=== PATIENT | female | born 1955 | race African-American/Black ===

== ENCOUNTER 2025-02-25 07:27 | Inpatient (IN) | payer OTHER, MEDICAID ==
[~2025-02-25] VITALS: Ht 167.6 cm; Wt 84.3 kg
[2025-02-25] VITALS (9 sets, daily range): BP systolic 121–164; BP diastolic 70–80; PULSE 61–78; RESP 13–24; TEMP 97.7–98.1; O2SAT 97–100
[~2025-02-25 07:27] MED LIST: CYAN50TA2 PO; MULT-691 PO; PANT40T PO
[2025-02-25] MEDS: fentaNYL CITRATE 100 MCG/2 ML VL IV ONE (07:45)
--- NOTE | 2025-02-25 07:45 | ED.PDOC ---
HPI (NEURO) HPI Comments 69 year old female presents to the ED with a chief complaint of headache onset 5 days. Patient states she has been experiencing headache for the past 5 days, was seen at [facility], had a CT head, CT abdomen and were both negative. Patient states pain has not improved, she has also experienced nausea/vomiting, blurred vision. She would get mild headaches once every few months, first headache this severe. PCP has told patient headaches might be stressed induced. PMHx [place], CAD, HTN, HLD. Denies chest pain, shortness of breath, diarrhea, fever, chills, dysuria, hematemesis. No other symptoms or modifying factors present at this time. Time Seen by MD: 07:35 Primary Care Provider: TRISTON Reviewed Notes: Medications, Allergies Information Source: Patient Mode of Arrival: Wheelchair Severity: Moderate Headache Severity: Moderate Timing: Days Duration: Since onset Prehospital treatment: None Headache Quality: Throbbing, Sharp Headache Location: Generalized Onset: At rest Circumstances: Recent stress Symptoms: Change of vision Before: Normal History of: [place], Hypertension Modifying factors: Nothing Associated Signs and Symptoms: Headache, Nausea, Vomiting, Blurred Vision Past Medical History PAST MEDICAL HISTORY: CAD, High Lipids, HTN, [place] 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 History Family History Family History: No family hx of Cancer Social History Smoker: Non-Smoker Alcohol: Denies ETOH Use Drugs: Denies Drug Use Lives In: Home Constitutional: denies: chills, diaphoresis, fatigue, fever, malaise, sweats, weakness, others EENTM: reports: blurred vision; denies: double vision, ear bleeding, ear discharge, ear drainage, ear pain, ear ringing, eye pain, eye redness, hearing loss, mouth pain, mouth swelling, nasal discharge, nose bleeding, nose congestion, nose pain, photophobia, tearing, throat pain, throat swelling, voice changes, others Respiratory: denies: cough, hemoptysis, orthopnea, SOB at rest, shortness of breath, SOB with excertion, stridor, wheezing, others Cardiovascular: denies: chest pain, dizzy spells, diaphoresis, Dyspnea on exertion, edema, irregular heart beat, left arm pain, lightheadedness, palpitations, PND, syncope, others Gastrointestinal: reports: nausea, vomiting; denies: abdomen distended, abdominal pain, blood streaked bowels, constipated, diarrhea, dysphagia, difficulty swallowing, hematemesis, melena, poor appetite, poor fluid intake, rectal bleeding, rectal pain, others Genitourinary: denies: abnormal vagina bleeding, burning, dyspareunia, dysuria, flank pain, frequency, hematuria, incontinence, pain, , vagina discharge, urgency, others Neurological: reports: headache; denies: dizziness, fainting, left sided numbness, left sided weakness, numbness, paresthesia, pre-existing deficit, right sided numbness, right sided weakness, seizure, speech problems, tingling, tremors, weakness, others Musculoskeletal: denies: back pain, gout, joint pain, joint swelling, muscle pain, muscle stiffness, neck pain, others Integumetry: denies: bruises, change in color, change in hair/nails, dryness, laceration, lesions, lumps, rash, wounds, others Allergic/Immunocompromised: denies: Difficulty Healing, Frequent Infections, Hives, Itching, others Hematologic/Lymphatic: denies: anemia, blood clots, easy bleeding, easy bruising, swollen glands, others Endocrine: denies: excessive hunger, excessive sweating, excessive thirst, excessive urination, flushing, intolerance to cold, intolerance to heat, unexplained weight gain, unexplained weight loss, others Psychiatric: denies: anxiety, bipolar disorder, depression, hopeless, panic disorder, schizophrenia, sleepless, suicidal, others All Other Systems: Reviewed and Negative Physical Exam General Appearance: No Apparent Distress, Normal HEENT: Normal ENT Inspection, Pharynx Normal, TMs Normal Neck: Full Range of Motion, Non-Tender, Normal, Normal Inspection Respiratory: Chest Non-Tender, Lungs Clear, No Accessory Muscle Use, No Respiratory Distress, Normal Breath Sounds Cardiovascular: No Edema, No JVD, No Murmur, No Gallop, Normal Peripheral Pulses, Regular Rate/Rhythm Breast Exam: Deferred Gastrointestinal: No Organomegaly, Non Tender, No Pulsatile Mass, Normal Bowel Sounds, Soft Genitalia: Deferred Pelvic: Deferred Rectal: Deferred Extremities: No calf tenderness, Normal capillary refill, Normal inspection, Normal range of motion, Non-tender, No pedal edema Musculoskeletal : Apperance: Normal Neurologic: Alert, insurance claim approver II-XII nml as Tested, No Motor Deficits, No Sensory Deficits, Other (No palpable cords) Cerebellar Function: Normal Reflexes: Normal Skin: Dry, Normal Color, Warm Lymphatic: No Adenopathy EKG EKG : Pulse Rate (adult): 69 Cardiac Rhythm: NSR, PVC's (occacional) Was a procedure done? Was a procedure done?: No Differential Diagnosis (SZ) Seizure: N/A General Weakness: N/A Headache: Cluster, Migraine, Carbon Monoxide Toxicity, CVA, Epidural Hemorrhage, Intracerebral Hemorrhage, Subarachnoid Hemorrhage, Subdural Hemorrhage, Mass Lesion, Meningitis, Sinusitis, Trigeminal Neuralgia, Other (temporal arteritis) X-Ray, Labs, Meds, VS Vital Signs Date Time Temp Pulse Resp B/P (MAP) Pulse Ox O2 Delivery O2 Flow Rate FiO2 02/25/25 09:53 97.9 60 16 153/87 (109) 97 97.9 02/25/25 07:49 69 02/25/25 07:44 97.8 69 20 157/90 (112) 98 97.8 02/25/25 07:44 69 Lab Test 02/25/25 09:18 02/25/25 08:00 Range/Units Urine Color Light-yellow Yellow Urine Clarity Clear Clear Urine pH 5.5 5.0-9.0 Urine Specific [place] 1.013 1.001-1.035 Urine Protein Negative Negative Urine Ketones Negative Negative Urine Blood 1+ H Negative /uL Urine Nitrite Negative Negative Urine Bilirubin Negative Negative Urine Urobilinogen Normal Negative mg/dL Urine Leukocyte Esterase Negative Negative /uL Urine RBC 2 0 - 4 /hpf Urine Microscopic WBC 1 0-5 /HPF Urine Squamous Epithelial Cells Few <5 /hpf Urine Bacteria Few H None Seen /hpf Urine Glucose Normal Normal mg/dL White Blood Count 6.8 4.4-10.8 10^3/uL Red Blood Count 4.35 4.0-5.20 10^6/uL Hemoglobin 12.3 12.2-16.2 g/dL Hematocrit 36.5 36.0-46.0 % Mean Corpuscular Volume 84.0 80.0-100.0 fL Mean Corpuscular Hemoglobin 28.4 28.0-32.0 pg Mean Corpuscular Hemoglobin Concent 33.8 32.0-36.0 g/dL Red Cell Distribution Width 13.7 11.8-14.3 % Platelet Count 301 140-450 10^3/uL Mean Platelet Volume 8.0 6.9-10.8 fL Neutrophils (%) (Auto) 61.3 37.0-80.0 % Lymphocytes (%) (Auto) 23.5 10.0-50.0 % Monocytes (%) (Auto) 6.9 0.0-12.0 % Eosinophils (%) (Auto) 8.0 H 0.0-7.0 % Basophils (%) (Auto) 0.3 0.0-2.0 % Neutrophils # (Auto) 4.1 1.6-8.6 10 ^3/uL Lymphocytes # (Auto) 1.6 0.4-5.4 10 ^3/uL Monocytes # (Auto) 0.5 0-1.3 10 ^3/uL Eosinophils # (Auto) 0.5 0-0.8 10 ^3/uL Basophils # (Auto) 0 0-0.2 10 ^3/uL Nucleated Red Blood Cells 0.2 % Erythrocyte Sedimentation Rate 72 H 0-20 mm/hr Sodium Level 142 136-145 mmol/L Potassium Level 3.8 3.5-5.1 mmol/L Chloride Level 109 H 98-107 mmol/L Carbon Dioxide Level 24 20-31 mmol/L Anion Gap 9 5-15 Blood Urea Nitrogen 10 9-23 mg/dL Creatinine 0.98 0.550-1.02 mg/dL Glomerular Filtration Rate Calc 63 >90 mL/min BUN/Creatinine Ratio 10.2 10.0-20.0 Serum Glucose 101 74-106 mg/dL Calcium Level 9.3 8.7-10.4 mg/dL Total Bilirubin 0.4 0.2-1.0 mg/dL Aspartate Amino Transferase (AST) 12 L 13-40 U/L Alanine Aminotransferase (ALT) 24 7-40 U/L Alkaline Phosphatase 98 46-116 U/L Total Protein 7.5 5.7-8.2 g/dL Albumin 4.2 3.2-4.8 g/dL Lipase 38 12-53 U/L [address] [address] Ph: [phone] DIAGNOSTIC IMAGING Diagnostic Imaging Report : [id number] Signed PATIENT: JONAS ROGEL ACCT: [id number] UNIT: [id number] : 1955 LOC: ER ROOM / BED: / AGE / SEX: 69 / F ADM STATUS: REG ER SERVICE [id number] ORDERING PHYSICIAN: JUDY MCGILL MD PROCEDURE(s): HWOCT - HEAD WITHOUT CONTRAST REASON: headache ORDER NUMBER(s): [id number], ACCESSION NUMBER(s): [id number] EXAM: CT HEAD WITHOUT CONTRAST HISTORY: headache COMPARISON: None TECHNIQUE: Axial images of the head were obtained and reformatted in coronal and sagittal planes. All CT scans at this medical facility are performed using dose modulation te chniques as appropriate to a performed exam including the following: Automated exposure control was utilized; adjustment of the MA and/or KV according to patient size; and use of iterative reconstruction technique. CT Dose: CTDI volume is 49 mGy. Dose-length product is 796 mGy*cm FINDINGS: There is no evidence of acute intracranial hemorrhage, mass, mass effect midline shift. There is no hydrocephalus or extra-axial fluid collection. There is a chronic lacunar infarct in the right caudate head region. Powers-white matter differentiation is otherwise maintained. The visualized paranasal sinuses and mastoid air cells are clear. The calvarium is intact. IMPRESSION: 1. No acute intracranial process. HS:Y ATED BY: JAYLEN HINES MD DICTATED DATE/TIME: 02/25/25809 SIGNED BY: JAYLEN HINES MD SIGNED DATE/TIME: 02/25/25809 CC: Time of 1ST Reevaluation: 08:05 Reevaluation 1ST: Unchanged Time of 2ND Reevaluation: 10:24 Reevaluation 2ND: Unchanged Patient Education/Counseling: Diagnosis, Treatment, Prognosis, Need For Follow Up Family Education/Counseling: Diagnosis, Treatment, Prognosis, Need For Follow Up, No Family Present Additional Information Previous visits reviewed: 05/18/2019, 12/16/2013 due to CP was diagosed with GERD and atypical chest pain The following tests were ordered, and results were reviewed by me: ESR, CT HEAD WO CONTRAST, CBC, CMP, LIPASE I reviewed and agreed with the following test results read by other providers: CT HEAD WO CONTRAST I discussed treatment and results with medical personnel and: patient Comprehensive systems review obtained and negative except for what is stated in the HPI. pt has a headache on the left evangelical. although she has had headaches, before, they were different. she recently had a workup, including ct of head and abdomen and pelvis at [facility], which were negative. repeat head ct is again negative. i do not palpate a temporal cord, but her ESR is >50 with reports of intermittent visual changes. i have suspicion for temporal arteritis and will start her on high dose prednisone. she will be admitted for intractable headache and rule our temporal arteritis Departure 1 Departure Time of Disposition: 10:26 Impression: Primary Impression: Intractable headache Qualified Codes: R51.9 - Headache, unspecified Additional Impression: Temporal arteritis syndrome Disposition: ADMITTED INPATIENT Admit to: Med Surg Condition: Serious Discharged With: Self, Relative Critical Care Note Critical Care Time?: Yes (55 min-critical care time only) Critical care comment: Due to concerns for patients condition deteriorating, the care required my highest level of attention and readiness to intervene. I assessed the patient, reviewed the medical records, ordered the appropriate tests and treatments, then reassessed for results and responsiveness. I communicated with medical personnel and consultants and formulated a plan of care. Total critical care time excludes any procedures Stability Stability form required: No I personally scribed for JUDY MCGILL MD ([email or web address]) on 02/25/25 at 07:45. Electronically submitted by Cristiane Diaz ([email or web address]). I personally scribed for JUDY MCGILL MD ([email or web address]) on 02/25/25 at 07:46. Electronically submitted by Cristiane Diaz ([email or web address]). I personally scribed for JUDY MCGILL MD ([email or web address]) on 02/25/25 at 07:49. Electronically submitted by Cristiane Diaz ([email or web address]). I personally scribed for JUDY MCGILL MD ([email or web address]) on 02/25/25 at 08:37. Electronically submitted by Cristiane Diaz ([email or web address]). JUDY MCGILL MD February 25, 2025 07:45
--- NOTE | 2025-02-25 08:13 | DVH ---
EXAM: CT HEAD WITHOUT CONTRAST HISTORY: headache COMPARISON: None TECHNIQUE: Axial images of the head were obtained and reformatted in coronal and sagittal planes. All CT scans at this medical facility are performed using dose modulation techniques as appropriate t o a performed exam including the following: Automated exposure control was utilized; adjustment of th e MA and/or KV according to patient size; and use of iterative reconstruction technique. CT Dose: CTDI volume is 49 mGy. Dose-length product is 796 mGy*cm FINDINGS: There is no evidence of acute intracranial hemorrhage, mass, mass effect midline shift. There is no h ydrocephalus or extra-axial fluid collection. There is a chronic lacunar infarct in the right caudat e head region. Powers-white matter differentiation is otherwise maintained. The visualized paranasal sinuses and mastoid air cells are clear. The calvarium is intact. IMPRESSION: 1. No acute intracranial process. HS:Y
[2025-02-25 08:21] LABS: Basophils # (auto) 0 10 ^3/uL (0-0.2); Basophils % (auto) 0.3 % (0.0-2.0); Eosinophils # (auto) 0.5 10 ^3/uL (0-0.8); Hematocrit 36.5 % (36.0-46.0); Hemoglobin 12.3 g/dL (12.2-16.2); Lymphocytes # (auto) 1.6 10 ^3/uL (0.4-5.4); Lymphocytes % (auto) 23.5 % (10.0-50.0); Mean Corpuscular Hemoglobin 28.4 pg (28.0-32.0); Mean Corpuscular Hgb Conc. 33.8 g/dL (32.0-36.0); Monocytes # (auto) 0.5 10 ^3/uL (0-1.3); Monocytes % (auto) 6.9 % (0.0-12.0); Neutrophils # (auto) 4.1 10 ^3/uL (1.6-8.6); Neutrophils % (auto) 61.3 % (37.0-80.0); Nucleated Red Blood Cells % 0.2 %; Platelet Count (auto) 301 10^3/uL (140-450); Red Blood Cells 4.35 10^6/uL (4.0-5.20); Red Cell Distribution Width 13.7 % (11.8-14.3); White Blood Cell 6.8 10^3/uL (4.4-10.8)
[2025-02-25 08:37] LABS: Alanine Aminotransferase 24 U/L (7-40); Albumin 4.2 g/dL (3.2-4.8); Alkaline Phosphatase 98 U/L (46-116); Anion Gap 9 (5-15); BUN/Creatinine Ratio 10.2 (10.0-20.0); Blood Urea Nitrogen 10 mg/dL (9-23); Calcium 9.3 mg/dL (8.7-10.4); Carbon Dioxide 24 mmol/L (20-31); Glucose 101 mg/dL (74-106); Lipase 38 U/L (12-53); Potassium 3.8 mmol/L (3.5-5.1); Sodium 142 mmol/L (136-145); Total Protein 7.5 g/dL (5.7-8.2)
[2025-02-25 08:38] LABS: Bilirubin, Total 0.4 mg/dL (0.2-1.0)
[2025-02-25 08:43] LABS: Aspartate Aminotransferase 12 U/L (13-40); Chloride 109 mmol/L (98-107)
[2025-02-25 08:55] LABS: Erythrocyte Sedimentation Rate 72 mm/hr (0-20)
[2025-02-25 09:57] LABS: Urine Bacteria FEW /hpf (None Seen); Urine Blood 1+ /uL (Negative); Urine Clarity Clear (Clear); Urine Color Light-Yellow (Yellow); Urine Protein, UAD Negative (Negative); Urine Specific Gravity 1.013 (1.001-1.035); Urine Squamous Epithelial Cell FEW /hpf (<5); Urine Urobilinogen Normal (Negative); Urine WBC 1 /HPF (0-5); Urine pH 5.5 (5.0-9.0)
[2025-02-25] MEDS: KETOROLAC TROMETH 30 MG/ML 1ML VIAL IV ONE (12:21)
[2025-02-25] MEDS: predniSONE 20 MG TAB PO ONE (12:21)
[2025-02-25] MEDS ORDERED: NITROGLYCERIN 0.4 MG SL TAB SL PRN (13:15)
[2025-02-25] MEDS ORDERED: MORPHINE SULFATE 4 MG/ML SYR/VIAL IV PRN ×2 (13:15)
[2025-02-25] MEDS ORDERED: ACETAMINOPHEN 325 MG TAB PO PRN (13:15)
--- NOTE | 2025-02-25 13:52 | DVH ---
EXAM: CT CT AB PEL WO CON-NO ORAL OR IV HISTORY: abd pain COMPARISON: None TECHNIQUE: Helical CT images of the abdomen and pelvis were performed without IV contrast. Sagittal a nd coronal reformatted images were obtained. This CT exam was performed using one or more of the foll owing dose reduction techniques: Automated exposure control, adjustment of the mA and/or kv according to patient size, or the use of iterative reconstruction techniques. Radiation Dose: Abdomen/Pelvis: CTDIvol 13.03 mGy, DLP 715.11 mGy*cm. FINDINGS: CT abdomen: There are interstitial infiltrates in the lung bases. The heart is enlarged. The stomach is distended with food. There are bilateral renal parapelvic cysts. The noncontrast liver, spleen, g allbladder, pancreas, and adrenal glands are unremarkable. No abdominal aortic aneurysm. CT pelvis: No abnormal bowel dilatation or free air. There is trace free fluid in the pelvis. There i s fecal retention in the colon. There are descending and sigmoid colon diverticula without evidence o f acute diverticulitis. The appendix and urinary bladder are unremarkable. There is [id number] right and mild left hip osteoarthritis. There is advanced degenerative disc disease and facet arthrop athy L5-S1, less severe degenerative changes at the more cephalad levels. IMPRESSION: 1. Cardiomegaly and interstitial infiltrates in the lung bases which may be due to CHF, interstitial pneumonia, or other interstitial lung disease. 2. Fecal retention in the colon suggestive of constipation. 3. Distal colonic diverticulosis without evidence of acute diverticulitis. 4. Trace free fluid in the pelvis, possibly physiologic. 5. Advanced lower lumbar degenerative disc disease and facet arthropathy. This would be better joi cterized with noncontrast MRI of the lumbar spine on a nonemergent basis, especially if the patient c omplains of lower extremity radicular symptoms. 6. No evidence of bowel obstruction, acute appendicitis, or other acute process in the abdomen or pel vis.
[2025-02-25] MEDS ORDERED: PIPERACILLIN-TAZOB 3.375GM 100 ML IV SCH (14:00)
[2025-02-25] MEDS: cefTRIAXone 1GM/50ML D5W 50 ML IV SCH (14:00)
--- NOTE | 2025-02-25 14:13 | DVHHP2 ---
History of Present Illness Reason for Visit: Headache History of Present Illness Paulette Simms is a 69-year-old female with past medical history of CAD, SD, status post PTCA x2 within the last 10 years, hypertension, hyperlipidemia, tubal ligation, and right shoulder surgery who presents to the ED with headache and change in vision which she states is fuzzy. However when patient puts on her eyeglasses she states that the vision is clear. Patient also states that she has been having diarrhea for the last 2 weeks dark brown and greenish output. Patient states that the last time she had a formed stool was over 2 weeks ago. She states that the pain in her abdomen is 7/10 stabbing pressure- like and constant. Patient also states that she was at [facility] recently complaining of a headache and they told her that she had TIA was not given any anticoagulants. She also states that her CT head and CT abdomen and pelvis that she did there was negative. She also endorses that they gave her cephalexin for a UTI and has not finished the course it. She also states that they gave her alendronate for her blood pressure and not for osteoporosis. Patient denies any chest pain, shortness of breath, recent trauma or injury, recent sick contacts, recent ingestion of spoiled food, lightheadedness, weakness, dizziness, hematemesis, melena, or hematochezia. Cardiovascular: CAD, HTN, SD, hyperipidemia Past Surgical History: Other (Right shoulder surgery and PTCA x2 within the last 10 years), Tubal Ligation Family History: Arthritis, Cancer, Hypertension, Other (Mom with arthritis, breast cancer, SD, and hypertension. Brother with arthritis, asthma, SD, and hy pertension. Sister with arthritis, asthma, breast cancer, stomach cancer, and hypertension. Dad with colon cancer.) Smoke: No ALCOHOL: none Drugs: None Lives: with Family Domestic Violence: Neg Review of Systems Constitutional: Yes: Other (MCCARTHY) Eyes: Vision change Gastrointestinal: Abdominal Pain, Diarrhea Allergies: Coded Allergies: Sulfa Drugs (Verified Allergy, Mild, ITCH, 02/17/13) Codeine (Verified Adverse Reaction, Mild, NAUSEA, 02/17/13) Exam Vital Signs Vital Signs Date Time Temp Pulse Resp B/P (MAP) Pulse Ox O2 Delivery O2 Flow Rate FiO2 02/25/25 12:15 61 13 99 Room Air* 0 21 02/25/25 12:15 98.4 158/73 (101) 98.4 General Appearance: Alert, Oriented X3, Cooperative, No acute distress HEENT: Atraumatic, PERRLA, EOMI, Mucous membr. moist/pink Respiratory: Clear to auscultation, Normal air movement Cardiovascular: Regular rate, Normal S1, Normal S2 Abdominal: Soft Extremities: Normal pulses Neuro: Normal speech, Strength at 5/5 X4 ext, Normal tone, Sensation intact Psych/Mental Status: Mental status NL, Mood NL Labs/Xrays Labs Test 02/25/25 09:18 02/25/25 08:00 Range/Units Urine Color Light-yellow Yellow Urine Clarity Clear Clear Urine pH 5.5 5.0-9.0 Urine Specific [place] 1.013 1.001-1.035 Urine Protein Negative Negative Urine Ketones Negative Negative Urine Blood 1+ H Negative /uL Urine Nitrite Negative Negative Urine Bilirubin Negative Negative Urine Urobilinogen Normal Negative mg/dL Urine Leukocyte Esterase Negative Negative /uL Urine RBC 2 0 - 4 /hpf Urine Microscopic WBC 1 0-5 /HPF Urine Squamous Epithelial Cells Few <5 /hpf Urine Bacteria Few H None Seen /hpf Urine Glucose Normal Normal mg/dL White Blood Count 6.8 4.4-10.8 10^3/uL Red Blood Count 4.35 4.0-5.20 10^6/uL Hemoglobin 12.3 12.2-16.2 g/dL Hematocrit 36.5 36.0-46.0 % Mean Corpuscular Volume 84.0 80.0-100.0 fL Mean Corpuscular Hemoglobin 28.4 28.0-32.0 pg Mean Corpuscular Hemoglobin Concent 33.8 32.0-36.0 g/dL Red Cell Distribution Width 13.7 11.8-14.3 % Platelet Count 301 140-450 10^3/uL Mean Platelet Volume 8.0 6.9-10.8 fL Neutrophils (%) (Auto) 61.3 37.0-80.0 % Lymphocytes (%) (Auto) 23.5 10.0-50.0 % Monocytes (%) (Auto) 6.9 0.0-12.0 % Eosinophils (%) (Auto) 8.0 H 0.0-7.0 % Basophils (%) (Auto) 0.3 0.0-2.0 % Neutrophils # (Auto) 4.1 1.6-8.6 10 ^3/uL Lymphocytes # (Auto) 1.6 0.4-5.4 10 ^3/uL Monocytes # (Auto) 0.5 0-1.3 10 ^3/uL Eosinophils # (Auto) 0.5 0-0.8 10 ^3/uL Basophils # (Auto) 0 0-0.2 10 ^3/uL Nucleated Red Blood Cells 0.2 % Erythrocyte Sedimentation Rate 72 H 0-20 mm/hr Sodium Level 142 136-145 mmol/L Potassium Level 3.8 3.5-5.1 mmol/L Chloride Level 109 H 98-107 mmol/L Carbon Dioxide Level 24 20-31 mmol/L Anion Gap 9 5-15 Blood Urea Nitrogen 10 9-23 mg/dL Creatinine 0.98 0.550-1.02 mg/dL Glomerular Filtration Rate Calc 63 >90 mL/min BUN/Creatinine Ratio 10.2 10.0-20.0 Serum Glucose 101 74-106 mg/dL Calcium Level 9.3 8.7-10.4 mg/dL Total Bilirubin 0.4 0.2-1.0 mg/dL Aspartate Amino Transferase (AST) 12 L 13-40 U/L Alanine Aminotransferase (ALT) 24 7-40 U/L Alkaline Phosphatase 98 46-116 U/L Total Protein 7.5 5.7-8.2 g/dL Albumin 4.2 3.2-4.8 g/dL Lipase 38 12-53 U/L EXAM: CT CT AB PEL WO CON-NO ORAL OR IV HISTORY: abd pain COMPARISON: None TECHNIQUE: Helical CT images of the abdomen and pelvis were performed without IV contrast. Sagittal and coronal reformatted images were obtained. This CT exam was performed using one or more of the following dose reduction techniques: Automated exposure control, adjustment of the mA and/or kv according to patient size, or the use of iterative reconstruction techniques. Radiation Dose: Abdomen/Pelvis: CTDIvol 13.03 mGy, DLP 715.11 mGy*cm. FINDINGS: CT abdomen: There are interstitial infiltrates in the lung bases. The heart is enlarged. The stomach is distended with food. There are bilateral renal parapelvic cysts. The noncontrast liver, spleen, gallbladder, pancreas, and adrenal glands are unremarkable. No abdominal aortic aneurysm. CT pelvis: No abnormal bowel dilatation or free air. There is trace free fluid in the pelvis. There is fecal retention in the colon. There are descending and sigmoid colon diverticula without evidence of acute diverticulitis. The appendix and urinary bladder are unremarkable. There is [id number] right and mild left hip osteoarthritis. There is advanced degenerative disc disease and facet arthropathy L5-S1, less severe degenerative changes at the more cephalad levels. IMPRESSION: 1. Cardiomegaly and interstitial infiltrates in the lung bases which may be due to CHF, interstitial pneumonia, or other interstitial lung disease. 2. Fecal retention in the colon suggestive of constipation. 3. Distal colonic diverticulosis without evidence of acute diverticulitis. 4. Trace free fluid in the pelvis, possibly physiologic. 5. Advanced lower lumbar degenerative disc disease and facet arthropathy. This would be better characterized with noncontrast MRI of the lumbar spine on a nonemergent basis, especially if the patient complains of lower extremity radicular symptoms. 6. No evidence of bowel obstruction, acute appendicitis, or other acute process in the abdomen or pelvis. EXAM: CT HEAD WITHOUT CONTRAST HISTORY: headache COMPARISON: None TECHNIQUE: Axial images of the head were obtained and reformatted in coronal and sagittal planes. All CT scans at this medical facility are performed using dose modulation techniques as appropriate to a performed exam including the following: Automated exposure control was utilized; adjustment of the MA and/or KV according to patient size; and use of iterative reconstruction technique. CT Dose: CTDI volume is 49 mGy. Dose-length product is 796 mGy*cm FINDINGS: There is no evidence of acute intracranial hemorrhage, mass, mass effect midline shift. There is no hydrocephalus or extra-axial fluid collection. There is a chronic lacunar infarct in the right caudate head region. Powers-white matter di fferentiation is otherwise maintained. The visualized paranasal sinuses and mastoid air cells are clear. The calvarium is intact. IMPRESSION: 1. No acute intracranial process. Assessment/Plan Assessment/Plan Assessment Intractable headache with vision change Hypertension History of UTI Obesity Cardiomegaly Possible pneumonia noted on imaging Constipation Diverticulosis without diverticulitis Events lower lumbar degenerative disc disease and facet arthropathy History of CAD History of SD status post PTCA x2 within the last 10 years History of tubal ligation History of right shoulder surgery History of hyperlipidemia ? History of TIA not on anti coags Plan Admit to [facility] noted Prednisone given in ED Fentanyl given in ED Lipase CT head noted ESR elevated IV antibiotics-ceftriaxone Last echo on 05/22/[address] 55% CT abdomen and pelvis Lactic C diff bacterial stool Echo ordered Diet Home medications reconciled DVT prophylaxis-Lovenox PUD prophylaxis-PPIs Discussed plan of care with patient and nurse Counseled patient on lifestyle modifications, diet, and exercise Rounding team to order MRI if warranted however patient does not complain of back pain Plan discussed with: Patient My Orders Orders - CATHY MONTGOMERY DIRECT SERVICE WORKER Procedure Category Date Status Time Admit ADMIT 02/25/25 Transmitted 13:05 Allergies GARRET 02/25/25 Transmitted 13:05 Hydrocodone-Acet PHA 02/25/25 Transmitted 5/325mg Tab ([place] 13:15 Ondansetron Hcl PHA 02/25/25 Transmitted (Zofran) 13:15 Complete Blood Count LAB 02/26/25 Verified 04:00 Comprehensive LAB 02/26/25 Verified Metabolic Panel 04:00 Cardiac DIET 02/25/25 Transmitted Diet-2gna,Lofat,Lochol Lunch Echo 2d Mode Cardiac US 02/25/25 Logged DOP 13:05 Acetaminophen Tablet PHA 02/25/25 Transmitted (Tylenol Tablet) 13:15 Morphine Sulfate PHA 02/25/25 Transmitted Injection 13:15 Sequential GARRET 02/25/25 Transmitted Compression Device Nitroglycerin PHA 02/25/25 Transmitted Sublingual (Ntrostat 13:15 Morphine Sulfate PHA 02/25/25 Transmitted Injection 13:15 Stat Ekg For Chest GARRET 02/25/25 Transmitted Pain 13:05 Notify Md Of Changes GARRET 02/25/25 Transmitted From Base 13:05 Traffic Engineering Director For GARRET 02/25/25 Transmitted 24 Hours 13:05 Emergency Dysrhythmia GARRET 02/25/25 Transmitted Protocol 13:05 Rhythm Strips Once GARRET 02/25/25 Transmitted Every Shift 13:05 Oxygen By Nasal RT 02/25/25 Transmitted Cannula 13:05 Ct Ab Pel Wo Con-No CT 02/25/25 Logged Oral Or Iv 13:05 Lactic Acid W/ Reflex LAB 02/25/25 Transmitted Order 13:05 Clostridium Difficile UMU 02/25/25 Transmitted Toxin 13:05 Zosyn Extended PHA 02/25/25 Transmitted Infusion 14:00 Date of Service: February 25, 2025 Billing Provider: CATHY MONTGOMERYP Common Visit Codes: [id number] INP/OBS CARE (HIGH) CATHY MONTGOMERY DIRECT SERVICE WORKER February 25, 2025 14:13
[2025-02-25] MEDS: cefTRIAXone 1GM/50ML D5W 50 ML IV ONE (16:39)
[2025-02-25] MEDS: HYDROcodone-ACET 5/325MG TAB PO PRN (22:26)
[2025-02-25] MEDS: DOCUSATE SOD 100 MG CAP PO ONE (23:10)
[2025-02-25] MEDS: ONDANSETRON HCL 4 MG/2 ML VIAL IV PRN (23:11)
[2025-02-26] VITALS (8 sets, daily range): BP systolic 127–154; BP diastolic 67–80; PULSE 52–72; RESP 16–20; TEMP 97.5–98.2; O2SAT 97–99
[2025-02-26 06:52] LABS: Basophils # (auto) 0 10 ^3/uL (0-0.2); Basophils % (auto) 0.1 % (0.0-2.0); Eosinophils # (auto) 0 10 ^3/uL (0-0.8); Eosinophils % (auto) 0.1 % (0.0-7.0); Hematocrit 36.7 % (36.0-46.0); Hemoglobin 12.2 g/dL (12.2-16.2); Lymphocytes # (auto) 1.1 10 ^3/uL (0.4-5.4); Lymphocytes % (auto) 10.7 % (10.0-50.0); Mean Corpuscular Hemoglobin 28.6 pg (28.0-32.0); Mean Corpuscular Hgb Conc. 33.2 g/dL (32.0-36.0); Mean Corpuscular Volume 86.1 fL (80.0-100.0); Monocytes # (auto) 0.6 10 ^3/uL (0-1.3); Monocytes % (auto) 6.1 % (0.0-12.0); Neutrophils # (auto) 8.7 10 ^3/uL (1.6-8.6); Nucleated Red Blood Cells % 0.1 %; Platelet Count (auto) 301 10^3/uL (140-450); Red Blood Cells 4.26 10^6/uL (4.0-5.20); Red Cell Distribution Width 13.3 % (11.8-14.3); White Blood Cell 10.5 10^3/uL (4.4-10.8)
[2025-02-26 07:04] LABS: Alanine Aminotransferase 23 U/L (7-40); Albumin 4.1 g/dL (3.2-4.8); Alkaline Phosphatase 101 U/L (46-116); Anion Gap 8 (5-15); BUN/Creatinine Ratio 17.1 (10.0-20.0); Bilirubin, Total 0.3 mg/dL (0.2-1.0); Blood Urea Nitrogen 19 mg/dL (9-23); Calcium 10.4 mg/dL (8.7-10.4); Carbon Dioxide 24 mmol/L (20-31); Chloride 106 mmol/L (98-107); Potassium 4.3 mmol/L (3.5-5.1); Sodium 138 mmol/L (136-145); Total Protein 7.3 g/dL (5.7-8.2)
[2025-02-26 07:07] LABS: Aspartate Aminotransferase 10 U/L (13-40); Glucose 135 mg/dL (74-106)
[2025-02-26] MEDS: ENOXAPARIN SOD 40 MG/0.4 ML SYRINGE SC SCH (10:13)
[2025-02-26] MEDS: CYANOCOBALAMIN 500 MCG TAB PO SCH (10:14)
[2025-02-26] MEDS: MULTIPLE VITAMIN TAB PO SCH (10:15)
[2025-02-26] MEDS: PANTOPRAZOLE 40 MG TAB PO SCH (10:16)
[2025-02-26] MEDS: FUROSEMIDE 20 MG/2 ML VIAL IV ONE (11:45)
[2025-02-26] MEDS: GASTROGRAFIN 120 ML SOL ONE (12:28)
--- NOTE | 2025-02-26 12:35 | DVHPN2 ---
Subjective Seen and examined at bedside, c/o of no bowel movement for 3 weeks. Will get small bowel series. Also having vision changes, needs outpatient optho. Changes from previous H/P or p: No Changes Eyes: Vision change Gastrointestinal: Abdominal Pain, Constipation Objective Vitals Vital Signs Date Time Temp Pulse Resp B/P (MAP) Pulse Ox O2 Delivery O2 Flow Rate FiO2 02/26/25 09:26 97.6 62 17 154/75 (101) 98 97.6 02/26/25 08:20 Room Air* 0 21 Intake/Output Intake and Output 02/26/25 07:00 Intake Total 1830 ml Balance 1830 ml Intake Oral 1780 ml IV Total 50 ml # Voids 2 # Bowel Movements 1 General Appearance: Alert, Oriented X3, Cooperative HEENT: EOMI Neck: Carotid [place] Cardiovascular: Regular rate, Normal S1, Normal S2 Abdomen: Other (No bowel sounds) Psych/Mental Status: Mental status NL Medications Current Medications Medications Dose Ordered Sig/Lucius Route Start Time Stop Time Status Last Admin Dose Admin Acetaminophen/ Hydrocodone Bitart 1 tab Q4HP PRN PO 02/25/25 13:15 02/26/25 10:16 1 TAB Ondansetron HCl 4 mg Q4HP PRN IV 02/25/25 13:15 02/26/25 03:58 4 MG Acetaminophen 650 mg Q6HP PRN PO 02/25/25 13:15 Morphine Sulfate 2 mg Q4HPRN PRN IV 02/25/25 13:15 Nitroglycerin 0.4 mg Q5MINP PRN SL 02/25/25 13:15 Morphine Sulfate 2 mg Q30M PRN IV 02/25/25 13:15 Ceftriaxone Sodium 50 ml @ 100 mls/hr DAILY@09 IV 02/25/25 14:00 02/26/25 10:10 100 MLS/HR Pantoprazole Sodium 40 mg DAILY PO 02/26/25 10:00 02/26/25 10:16 40 MG Cyanocobalamin 500 mcg DAILY PO 02/26/25 10:00 02/26/25 10:14 500 MCG Multivitamins 1 tab DAILY PO 02/26/25 10:00 02/26/25 10:15 1 TAB Enoxaparin Sodium 40 mg DAILY SC 02/26/25 10:00 02/26/25 10:13 40 MG Metronidazole 100 ml @ 100 mls/hr Q8HR IV 02/26/25 14:00 UNV Saccharomyces Boulardii 250 mg BID PO 02/26/25 22:00 UNV Laboratory Results Laboratory Tests 02/26/25 05:12 Chemistry Test 02/26/25 05:12 Albumin 4.1 g/dL (3.2-4.8) Calcium Level 10.4 mg/dL (8.7-10.4) Total Protein 7.3 g/dL (5.7-8.2) LFT Test 02/26/25 05:12 Alanine Aminotransferase (ALT) 23 U/L (7-40) Alkaline Phosphatase 101 U/L (46-116) Aspartate Amino Transferase (AST) 10 U/L (13-40) L Total Bilirubin 0.3 mg/dL (0.2-1.0) Urinalysis Test 02/25/25 09:18 Urine Color Light-yellow (Yellow) Urine Clarity Clear (Clear) Urine pH 5.5 (5.0-9.0) Urine Specific [place] 1.013 (1.001-1.035) Urine Protein Negative (Negative) Urine Ketones Negative (Negative) Urine Blood 1+ /uL (Negative) H Urine Nitrite Negative (Negative) Urine Bilirubin Negative (Negative) Urine Urobilinogen Normal mg/dL (Negative) Urine Leukocyte Esterase Negative /uL (Negative) Urine RBC 2 /hpf (0 - 4) Urine Microscopic WBC 1 /HPF (0-5) Urine Squamous Epithelial Cells Few /hpf (<5) Urine Bacteria Few /hpf (None Seen) H Urine Glucose Normal mg/dL (Normal) Assessment/Plan Assessment/Plan # Abdominal Pain - R.o Ileus - Small bowel series # Vision Changes - Outpatient Optho # CAD - Chronic # Possible Acute Diastolic CHF per CT? - CXR normal - No evidence of PNA Plan discussed with: Patient My Orders Orders - KARMA SNIDER MD Procedure Category Date Status Time Metronidazole PHA 02/26/25 Logged 500mg/100ml (Flagyl 14:00 Florastor (S. PHA 02/26/25 Logged Boulardii) (Florastor) 22:00 Stool Occult Blood LAB 02/26/25 Logged 11:39 Stool Wbc LAB 02/26/25 Logged 11:39 Stool Bacterial UMU 5/31/25 Logged Culture 11:39 Furosemide Injection PHA 02/26/25 Logged (Lasix Injection) 11:45 * Gi Dvh Roving Hand CONS 02/26/25 Transmitted 11:39 Discontinue Tele GARRET 02/26/25 In Process 11:39 Npo (Nothing By DIET 02/26/25 Transmitted Mouth) Diet Lunch Small Bowel Series-W XY 02/26/25 Logged Gastrogra 12:22 Date of Service: February 26, 2025 Billing Provider: KARMA SNIDER MD Common Visit Codes: [id number] INP/OBS CARE(HIGH) KARMA SNIDER MD February 26, 2025 12:35
--- NOTE | 2025-02-26 14:32 | DVHSR ---
APPROVED REPORT EXAM: Two-dimensional and M-mode echocardiogram with Doppler and color Doppler. Blood Pressure: 147/67 mmHg INDICATION Dizziness and Vertigo RISK FACTORS Height: 5'6, Weight: 188 DIMENSIONS LVDd4.2 (3.8-5.7cm)LA (2D)3.6 (1.9-4.0cm)Aortic Root2.8 (2.0-3.7cm) LVDs3.2 (2.5-4.0cm)LA (MM) (1.9-4.0cm)Aortic Cusp Exc2.0 (1.5-2.0cm) EF (%) 55.0 (55-70%)Rt. Atrium3.4 (1.9-4.0cm)Asc. Aorta3.3 cm IVSd1.0 (0.7-1.1cm)RV (D) (1.8-2.4cm) PWd0.9 (0.7-1.1cm) Mitral Valve MitralMitral Stenosis E wave0.87m/sMV Mean GR.mmHg A wave0.89m/sMV Peak GR.mmHg E/A ratio1.02D MVAcm2 DECEL [id number] 1/2 Timems Aortic Valve Aortic ValveAortic Stenosis V10.76m/Devendra Mean GR.5mmHg V21.46m/Devendra Peak GR.8mmHg LVOT Diameter2.3 (1.8-2.4cm)Doppler AVA2.16cm2 Pulmonic Valve V20.93m/s Tricuspid Valve TR Velocity2.45m/s [id number] Conclusion lvef 65% normal rv function normal atria no severe valve abnormalities noted moderat tricuspid regurg
[2025-02-26] MEDS: metroNIDAZOLE 500MG/100ML 100 ML IV SCH (15:42)
--- NOTE | 2025-02-26 16:38 | DVH ---
Procedure: XY SMALL BOWEL SERIES-W GASTROGRA Exam Date: 02/26/2025 12:54 PM Reason for study/Clinical History: POSSIBLE ILEUS Comparison Study: None Technique: Single contrast small bowel series performed. Findings: Initial busher helper view of the abdomen and pelvis appears demonstrates no acute process. Contrast is identified within the colon by 3 hours . This represents delayed transit time Small bowel loops are normal in size. Normal mucosal pattern. No evidence of small bowel obstructi on, stricture, or mucosal abnormality. The terminal ileum is well visualized and is unremarkable. IMPRESSION: Normal small bowel series. END IMPRESSION:
[2025-02-26] MEDS: FLORASTOR (S. BOULARDII) 250 MG CAP PO SCH (22:06)
[2025-02-27 01:00] VITALS: BP 114/72; PULSE 97; RESP 20; TEMP 97.8; O2SAT 56
[2025-02-27 05:01] VITALS: BP 110/71; PULSE 54; RESP 22; TEMP 97.9; O2SAT 98
[2025-02-27 08:10] VITALS: PULSE 55; RESP 16; O2SAT 96
[2025-02-27 08:39] VITALS: BP 144/77; PULSE 55; RESP 16; TEMP 98.2; O2SAT 96
--- NOTE | 2025-02-27 09:54 | DVHDS2 ---
Discharge Summary Date of Admission February 25, 2025 at 13:05 Date of Discharge: Feb 27, 2025 Admitting Diagnosis Abdominal Pain Labs/Diagnostic Data: Laboratory Results Test 02/26/25 20:22 02/26/25 05:12 02/25/25 13:35 02/25/25 09:18 Stool Occult Blood Positive (Negative) Stool Occult Blood Sample #3 (Negative) Stool for White Cells None seen White Blood Count 10.5 10^3/uL (4.4-10.8) Red Blood Count 4.26 10^6/uL (4.0-5.20) Hemoglobin 12.2 g/dL (12.2-16.2) Hematocrit 36.7 % (36.0-46.0) Mean Corpuscular Volume 86.1 fL (80.0-100.0) Mean Corpuscular Hemoglobin 28.6 pg (28.0-32.0) Mean Corpuscular Hemoglobin Concent 33.2 g/dL (32.0-36.0) Red Cell Distribution Width 13.3 % (11.8-14.3) Platelet Count 301 10^3/uL (140-450) Mean Platelet Volume 8.6 fL (6.9-10.8) Neutrophils (%) (Auto) 83.0 % (37.0-80.0) Lymphocytes (%) (Auto) 10.7 % (10.0-50.0) Monocytes (%) (Auto) 6.1 % (0.0-12.0) Eosinophils (%) (Auto) 0.1 % (0.0-7.0) Basophils (%) (Auto) 0.1 % (0.0-2.0) Neutrophils # (Auto) 8.7 10 ^3/uL (1.6-8.6) Lymphocytes # (Auto) 1.1 10 ^3/uL (0.4-5.4) Monocytes # (Auto) 0.6 10 ^3/uL (0-1.3) Eosinophils # (Auto) 0 10 ^3/uL (0-0.8) Basophils # (Auto) 0 10 ^3/uL (0-0.2) Nucleated Red Blood Cells 0.1 % Sodium Level 138 mmol/L (136-145) Potassium Level 4.3 mmol/L (3.5-5.1) Chloride Level 106 mmol/L (98-107) Carbon Dioxide Level 24 mmol/L (20-31) Anion Gap 8 (5-15) Blood Urea Nitrogen 19 mg/dL (9-23) Creatinine 1.11 mg/dL (0.550-1.02) Glomerular Filtration Rate Calc 54 mL/min (>90) BUN/Creatinine Ratio 17.1 (10.0-20.0) Serum Glucose 135 mg/dL (74-106) Calcium Level 10.4 mg/dL (8.7-10.4) Total Bilirubin 0.3 mg/dL (0.2-1.0) Aspartate Amino Transferase (AST) 10 U/L (13-40) Alanine Aminotransferase (ALT) 23 U/L (7-40) Alkaline Phosphatase 101 U/L (46-116) Total Protein 7.3 g/dL (5.7-8.2) Albumin 4.1 g/dL (3.2-4.8) Lactic Acid Level 1.9 mmol/L (0.4-2.0) Urine Color Light-yellow (Yellow) Urine Clarity Clear (Clear) Urine pH 5.5 (5.0-9.0) Urine Specific [place] 1.013 (1.001-1.035) Urine Protein Negative (Negative) Urine Ketones Negative (Negative) Urine Blood 1+ /uL (Negative) Urine Nitrite Negative (Negative) Urine Bilirubin Negative (Negative) Urine Urobilinogen Normal mg/dL (Negative) Urine Leukocyte Esterase Negative /uL (Negative) Urine RBC 2 /hpf (0 - 4) Urine Microscopic WBC 1 /HPF (0-5) Urine Squamous Epithelial Cells Few /hpf (<5) Urine Bacteria Few /hpf (None Seen) Urine Glucose Normal mg/dL (Normal) Test 02/25/25 08:00 Erythrocyte Sedimentation Rate 72 mm/hr (0-20) Lipase 38 U/L (12-53) Other Laboratory Tests 02/26/25 05:12 Brief Hx & Hospital Course: Paulette Simms is a 69-year-old female with past medical history of CAD, GA, status post PTCA x2 within the last 10 years, hypertension, hyperlipidemia, tubal ligation, and right shoulder surgery who presents to the ED with headache and change in vision which she states is fuzzy. However when patient puts on her eyeglasses she states that the vision is clear. Patient also was complaining of not having a bowel movement for 3 weeks. Patient underwent a small bowel series which was normal. Patient will need to see Opthalmology as outpatient within a week. Patient also needs to see GI for screening colonoscopy. Patient will be discharged home to see PCP in 1 week. Operations or Procedures EXAM: Two-dimensional and M-mode echocardiogram with Doppler and color Doppler. Blood Pressure: 147/67 mmHg INDICATION Dizziness and Vertigo RISK FACTORS Height: 5'6, Weight: 188 DIMENSIONS LVDd 4.2 (3.8-5.7cm) LA (2D) 3.6 (1.9-4.0cm) Aortic Root 2.8 (2.0- 3.7cm) LVDs 3.2 (2.5-4.0cm) LA (MM) (1.9-4.0cm) Aortic Cusp Exc 2.0 (1.5- 2.0cm) EF (%) 55.0 (55-70%) Rt. Atrium 3.4 (1.9-4.0cm) Asc. Aorta 3.3 cm IVSd 1.0 (0.7-1.1cm) RV (D) (1.8-2.4cm) PWd 0.9 (0.7-1.1cm) Mitral Valve Mitral Mitral Stenosis E wave 0.87m/s MV Mean GR. mmHg A wave 0.89m/s MV Peak GR. mmHg E/A ratio 1.0 2D MVA cm2 DECEL Time 238ms PRESS 1/2 Time ms Aortic Valve Aortic Valve Aortic Stenosis V1 0.76m/s AO Mean GR. 5mmHg V2 1.46m/s AO Peak GR. 8mmHg LVOT Diameter 2.3 (1.8-2.4cm) Doppler KRISHNA 2.16cm2 Pulmonic Valve V2 0.93m/s Tricuspid Valve TR Velocity 2.45m/s RVSP 29mmHg Conclusion lvef 65% normal rv function normal atria no severe valve abnormalities noted moderat tricuspid regurg Condition at Discharge: Stable Final Diagnosis/Problems List # Abdominal Pain - Ruled out Ileus - Small bowel series normal # Vision Changes - Outpatient Optho # CAD - Chronic # Possible Acute Diastolic CHF per CT? - CXR normal - No evidence of PNA Discharge Disposition: Home Discharge Instruct/Medications Diet: Regular Activity: Light activity Follow Up/Referral: PCP in 1 week [facility] in 2 weeks Optho Medications: Resume Home Meds Discharge Statement: "Patient was advised to return to the ER or call 911 if any headaches, dizziness, shortness of breath, chest pain, abdominal pain, bleeding, fevers, or worsening of medical condition. Patient was counseled about treatment plan, medications, possible side effects, patientverbalized understanding. All questions were answered to the best of my ability. This discharge took greater then 30 minutes in planning, reviewing documentation, counseling the patient, and discussing with other team members." ASSESSMENT ASSESSMENT Assessment Date of Service: Feb 27, 2025 Billing Provider: KARMA SNIDER MD Common Visit Codes: [id number] DISCH DAY >30min KARMA SNIDER MD Feb 27, 2025 09:54
[2025-02-27 12:22] VITALS: BP 142/78; PULSE 55; RESP 16; TEMP 98.2; O2SAT 97
[2025-02-27 13:07] VITALS: BP 119/66; PULSE 65; RESP 16; TEMP 97.9; O2SAT 97
--- NOTE | 2025-03-03 06:58 | ECG ---
[facility] Test Date: 2025-02-25 Test Time: 07:44:33 Pat Name: JONAS ROGEL Department: ER Room: 0280 A Gender: F Loan Underwriter: SHAWANDA : 1955 Requested By: JUDY MCGILL Order Number: [id number] Reading MD: Measurements Intervals [place] Rate: 69 P: 52 CO: 134 QRS: -21 QRSD: 92 T: 12 QT: 375 QTc: 402 Interpretive Statements Sinus rhythm Sinus pause Abnormal R-wave progression, early transition Left ventricular hypertrophy Please click the below link to view image of tracing.
== END 2025-02-27 13:45 | disposition home or self-care (01) | DRG 391 ==
LOC: ER 07:27 → OVERFLOW 13:05 → TELE-WESTW 18:26 → WEST WING 02-26 22:23
DX: A09 Infectious gastroenteritis and colitis, unspecified (principal); I50.31 Acute diastolic (congestive) heart failure; I11.0 Hypertensive heart disease with heart failure; K59.00 Constipation, unspecified; M47.816 Spondylosis without myelopathy or radiculopathy, lumbar region; E66.9 Obesity, unspecified; I25.10 Atherosclerotic heart disease of native coronary artery without angina pectoris; E78.5 Hyperlipidemia, unspecified; K57.30 Diverticulosis of large intestine without perforation or abscess without bleeding; Z82.49 Family history of ischemic heart disease and other diseases of the circulatory system; Z80.3 Family history of malignant neoplasm of breast; Z98.61 Coronary angioplasty status; Z88.5 Allergy status to narcotic agent; Z88.2 Allergy status to sulfonamides; Z79.899 Other long term (current) drug therapy; Z87.440 Personal history of urinary (tract) infections; Z68.30 Body mass index [BMI] 30.0-30.9, adult
CPT/HCPCS: 36415; 70450; 74176; 74250; 80053; 81001; 82270; 83605; 83690; 85025; 85048; 85652; 87045; 93306; 96374; 99291; G0378; J1885; J2405; J3490